=== PATIENT | female | born 2000 | race Two or more races ===

== ENCOUNTER 2019-10-18 02:15 | Emergency (ER) | payer SELFPAY ==
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
== END 2019-10-18 02:42 | disposition home or self-care (01) ==
LOC: MW.ED 02:15
DX: S00.03XA Contusion of scalp, initial encounter (principal); Y08.89XA Assault by other specified means, initial encounter
CPT/HCPCS: 82962; 99283; 99284